=== PATIENT | male | born 1995 | race Caucasian/White ===

== ENCOUNTER → 2018-11-18 10:04 | Outpatient (CLI) | payer OTHER | END | disposition home or self-care (01) | LOC: D.NM 10:04 | PROVIDERS: ATTEND Internal Medicine Gastroenterology | DX: R10.84 Generalized abdominal pain (principal); R11.0 Nausea; R63.4 Abnormal weight loss ==

== ENCOUNTER → 2018-12-23 08:14 | Outpatient (CLI) | payer OTHER | END | disposition home or self-care (01) | LOC: D.US 08:14 | PROVIDERS: ATTEND Internal Medicine Gastroenterology | DX: R10.9 Unspecified abdominal pain (principal); R11.0 Nausea ==

== ENCOUNTER → 2019-01-19 07:50 | Outpatient (CLI) | payer OTHER | END | disposition home or self-care (01) | LOC: D.NM 01-11 08:00 | PROVIDERS: ATTEND Internal Medicine Gastroenterology | DX: R10.84 Generalized abdominal pain (principal); R11.0 Nausea; R63.4 Abnormal weight loss ==

== ENCOUNTER 2019-02-15 06:40 | Day surgery (SDC) | payer OTHER ==
[~2019-02-15] VITALS: Ht 180.3 cm; Wt 61.2 kg
[2019-02-15 07:23] VITALS: BP 105/68; Ht 180.3 cm; Wt 61.2 kg
[2019-02-15] MEDS ORDERED: HYDROCODON-ACE1 EAC7 PO (09:17)
--- NOTE | 2019-02-15 11:39 | NUR ---
1130 PT VOIDED 1135 IV REMOVED AND INSTRUCTIONS GIVEN
== END 2019-02-15 11:48 | disposition home or self-care (01) ==
LOC: D.OPS 06:40 → D.PAN 08:45 → D.OPS 11:30
PROVIDERS: ATTEND Surgery
DX: K81.1 Chronic cholecystitis (principal); Z01.812 Encounter for preprocedural laboratory examination